=== PATIENT | male | born 1970 | race Caucasian/White ===

== ENCOUNTER 2017-10-11 07:17 | Emergency (ER) | payer MEDICAID, OTHER ==
[~2017-10-11] VITALS: Ht 177.8 cm; Wt 126.0 kg
[2017-10-11] MEDS ORDERED: SULF1TAB49 PO (08:23)
[2017-10-11 08:47] VITALS: BP 145/89
== END 2017-10-11 08:48 | disposition home or self-care (01) ==
LOC: ER 07:17
DX: L02.511 Cutaneous abscess of right hand (principal); I10 Essential (primary) hypertension; F17.200 Nicotine dependence, unspecified, uncomplicated; Z90.49 Acquired absence of other specified parts of digestive tract; Z98.890 Other specified postprocedural states; Z88.5 Allergy status to narcotic agent; Z79.899 Other long term (current) drug therapy
CPT/HCPCS: 99283

== ENCOUNTER 2017-12-07 09:40 | Emergency (ER) | payer OTHER ==
[~2017-12-07] VITALS: Ht 177.8 cm; Wt 120.0 kg
[2017-12-07] MEDS ORDERED: aspirin 81mg tab.chew PO ONE (09:55)
[2017-12-07 10:13] LABS: BASOPHILS % (AUTO) 0.3 % (0-1); EOSINOPHILS # (AUTO) 0.3 X10'3 (0-0.9); EOSINOPHILS % (AUTO) 3.2 % (0-6); HEMATOCRIT 48.3 % (42.0-52.0); HEMOGLOBIN 16.2 g/dl (14.0-17.9); LYMPHOCYTES # (AUTO) 0.6 X10'3 (1.1-4.8); LYMPHOCYTES % (AUTO) 6.2 % (21-51); MEAN CORPUSCULAR HEMOGLOBIN 28.9 PG (27.0-31.0); MEAN CORPUSCULAR HGB CONC 33.6 % (33.0-36.5); MEAN CORPUSCULAR VOLUME 86.1 FL (78-98); MEAN PLATELET VOLUME 9.4 FL (7.4-10.4); MONOCYTES # (AUTO) 0.4 X10'3 (0-0.9); MONOCYTES % (AUTO) 4.3 % (2-12); NEUTROPHILS # (AUTO) 8.5 X10'3 (1.8-7.7); PLATELET COUNT 219 X10'3 (140-440); RED CELL DISTRIBUTION WIDTH 14.6 % (11.5-14.5); WHITE BLOOD COUNT 9.9 X10'3 (4.5-11.0)
[2017-12-07] MEDS: nitroGLYCERIN 0.4mg SUBLingual tab SL PRN ×2 (10:14→10:42)
[2017-12-07 10:21] LABS: ALANINE AMINOTRANSFERASE 38 U/L (12-78); ALBUMIN 3.7 G/DL (3.4-5.0); ALBUMIN/GLOBULIN RATIO 0.9 (1.1-1.5); ALKALINE PHOSPHATASE 95 IU/L (46-116); ANION GAP 11 (8-16); ASPARTATE AMINO TRANSFERASE 24 U/L (10-37); BILIRUBIN,TOTAL 0.9 MG/DL (0.1-1.0); BLOOD UREA NITROGEN 19 MG/DL (7-18); BUN/CREATININE RATIO 19.6 (5.4-32.0); CALCIUM 8.5 MG/DL (8.5-10.1); CHLORIDE 103 MMOL/L (99-107); CREATININE 0.97 MG/DL (0.60-1.10); GLUCOSE 110 MG/DL (70-104); POTASSIUM 4.2 MMOL/L (3.5-5.1); SODIUM 140 MMOL/L (135-145); TOTAL CARBON DIOXIDE 26.1 MMOL/L (24-32); TOTAL PROTEIN 7.6 G/DL (6.4-8.2); eGFR 83 ML/MIN
[2017-12-07] MEDS ORDERED: metoprolol tartrate 50mg tablet PO ONE (10:30)
[2017-12-07] MEDS ORDERED: METO50TA7 PO (10:36)
[2017-12-07 10:39] LABS: TOTAL CELLS COUNTED 100
[2017-12-07 10:40] LABS: LARGE PLATELETS FEW; PLATELET ESTIMATE NORMAL
[2017-12-07 10:54] VITALS: BP 140/90
== END 2017-12-07 10:56 | disposition home or self-care (01) ==
LOC: ER 09:40
DX: I16.0 Hypertensive urgency (principal); R07.89 Other chest pain; M62.50 Muscle wasting and atrophy, not elsewhere classified, unspecified site; Z90.49 Acquired absence of other specified parts of digestive tract; Z98.890 Other specified postprocedural states; Z88.5 Allergy status to narcotic agent; Z79.899 Other long term (current) drug therapy
CPT/HCPCS: 36415; 71045; 80053; 83880; 84484; 85025; 99285

== ENCOUNTER 2023-01-11 08:12 | Emergency (ER) | payer MEDICAID ==
[~2023-01-11] VITALS: Ht 177.8 cm; Wt 108.1 kg
[2023-01-11 09:24] LABS: BASOPHILS # (AUTO) 0.1 X10'3 (0-0.2); EOSINOPHILS # (AUTO) 0.2 X10'3 (0-0.9); LYMPHOCYTES # (AUTO) 0.9 X10'3 (1.1-4.8); MEAN CORPUSCULAR VOLUME 88.5 FL (78-98); MONOCYTES # (AUTO) 0.6 X10'3 (0-0.9)
[2023-01-11 09:26] LABS: BASOPHILS % (AUTO) 0.9 % (0-1); EOSINOPHILS % (AUTO) 2.7 % (0-6); HEMATOCRIT 47.2 % (42.0-52.0); HEMOGLOBIN 15.8 g/dl (14.0-17.9); LYMPHOCYTES % (AUTO) 14.8 % (21-51); MEAN CORPUSCULAR HEMOGLOBIN 29.6 PG (27.0-31.0); MEAN CORPUSCULAR HGB CONC 33.4 g/dL (33.0-36.5); MEAN PLATELET VOLUME 8.8 FL (7.4-10.4); MONOCYTES % (AUTO) 9.5 % (2-12); NEUTROPHILS # (AUTO) 4.3 X10'3 (1.8-7.7); NEUTROPHILS % (AUTO) 72.1 % (42-75); PLATELET COUNT 250 X10'3 (140-440); RED BLOOD COUNT 5.33 X10'6 (4.70-6.10)
[2023-01-11 09:34] LABS: BLOOD UREA NITROGEN 8 MG/DL (7-18); BUN/CREATININE RATIO 9.1 (10.0-20.0); CHLORIDE 102 MMOL/L (99-107); CREATININE 0.88 MG/DL (0.60-1.10); GLUCOSE 107 MG/DL (70-104); POTASSIUM 3.7 MMOL/L (3.5-5.1); PRO BRAIN NATRIURETIC PEPTIDE 103 PG/ML (0-125); SODIUM 138 MMOL/L (135-145); eCRCL 103 ML/MIN; eGFR > 90 ML/MIN
[2023-01-11] MEDS ORDERED: normal saline 1000ML IV soln IVB ONE (09:35)
[2023-01-11 09:42] LABS: ALANINE AMINOTRANSFERASE 22 U/L (12-78); ALBUMIN 3.7 G/DL (3.4-5.0); ALBUMIN/GLOBULIN RATIO 0.9 (1.1-1.5); ALKALINE PHOSPHATASE 100 IU/L (46-116); ANION GAP 7 (8-16); ASPARTATE AMINO TRANSFERASE 21 U/L (10-37); BILIRUBIN,TOTAL 0.8 MG/DL (0.1-1.0); CALCIUM 8.8 MG/DL (8.5-10.1); TOTAL CARBON DIOXIDE 29.4 MMOL/L (24-32); TOTAL PROTEIN 7.9 G/DL (6.4-8.2)
[2023-01-11] MEDS ORDERED: LISI20TA28 PO (10:17)
[2023-01-11 11:21] VITALS: BP 165/96; PULSE 60; RESP 19; TEMP 98.5; O2SAT 97
== END 2023-01-11 11:42 | disposition home or self-care (01) ==
LOC: ER 08:13
DX: R07.89 Other chest pain (principal); I10 Essential (primary) hypertension; F12.90 Cannabis use, unspecified, uncomplicated; F15.90 Other stimulant use, unspecified, uncomplicated; F17.210 Nicotine dependence, cigarettes, uncomplicated; Z90.49 Acquired absence of other specified parts of digestive tract; Z88.5 Allergy status to narcotic agent
CPT/HCPCS: 36415; 71045; 80053; 83880; 84484; 85025; 93005; 96360; 99285; J7030

== ENCOUNTER 2023-04-21 12:38 | Emergency (ER) | payer MEDICAID ==
[~2023-04-21] VITALS: Ht 177.8 cm; Wt 102.3 kg
[~2023-04-21 12:38] MED LIST: LISI20TA28 PO
[2023-04-21 12:43] VITALS: BP 200/113; PULSE 88; RESP 18; TEMP 97; O2SAT 98
[2023-04-21] MEDS ORDERED: SULF1TAB48 PO (13:19)
== END 2023-04-21 13:38 | disposition home or self-care (01) ==
LOC: ER 12:39
DX: L72.3 Sebaceous cyst (principal); I10 Essential (primary) hypertension; F15.90 Other stimulant use, unspecified, uncomplicated; F12.90 Cannabis use, unspecified, uncomplicated; Z88.5 Allergy status to narcotic agent; Z79.899 Other long term (current) drug therapy
CPT/HCPCS: 99283

== ENCOUNTER 2023-11-19 10:49 | Emergency (ER) | payer MEDICAID ==
[~2023-11-19] VITALS: Ht 177.8 cm; Wt 101.0 kg
[2023-11-19 13:01] VITALS: BP 165/96; PULSE 72; RESP 16; TEMP 98; O2SAT 96
== END 2023-11-19 13:04 | disposition home or self-care (01) ==
LOC: ER 10:49
DX: M25.522 Pain in left elbow (principal); M13.822 Other specified arthritis, left elbow; I10 Essential (primary) hypertension; F12.90 Cannabis use, unspecified, uncomplicated; F15.90 Other stimulant use, unspecified, uncomplicated; Z79.899 Other long term (current) drug therapy; Z90.49 Acquired absence of other specified parts of digestive tract; Z98.890 Other specified postprocedural states
CPT/HCPCS: 73080; 99283

== ENCOUNTER 2024-07-30 06:41 | Emergency (ER) | payer MEDICAID ==
[~2024-07-30] VITALS: Ht 177.8 cm; Wt 100.6 kg
[2024-07-30 06:51] VITALS: TEMP 98.1
--- NOTE | 2024-07-30 10:44 | Physician Documentation ---
History of Present Illness ~ Chief Complaint: Hip pain Stated Complaint: LEG PAIN Time Seen by MD: 10:09 Primary Medical Doctor: NONE HPI 53-year-old male with a history of chronic right hip pain presenting with worsening hip pain for the past week. Patient states that he has had right hip pain for a long time due to having a leg length discrepancy. He states that his right leg is longer than his left. Over the past week he has noticed the hip has become extremely painful. He now has gotten so bad that he can barely bear any weight. Today it for the most part gave out on him. Pain does not radiate. Denies any other injuries. Medication Reconciliation Allergies: Coded Allergies: No Known Allergies (Unverified , 11/19/23) Scheduled Lisinopril (Lisinopril), 1 TAB PO DAILY Prednisone* (Prednisone*), 1 TAB PO Q12H Scheduled PRN Hydrocodone Bit/Acetaminophen (Hydrocodone-Apap 10-325 Tablet), 1 TAB PO QID PRN PRN for pain Past Medical History Past Medical History: No Pertinent History, Hypertension, *INFECTIOUS DZ* Past Surgical History: abdominal surgery, appendectomy, orthopedic surgeries Other Past Family History: NONCONTRIBUTORY Drug Use: marijuana, methamphetamine Lives with: Family Lives In: Home Occupation: employed Review of Systems All Other Systems at this time: Reviewed and Negative Physical Exam Vital Signs: Temperature: 98.1, Source: Oral, Heart Rate: 71, Respiratory Rate: 16, BP: 208/112, Pulse Oximetry: 97, Weight: 100.600 Oxygen Flow Rate: 0 Physical Exam I have reviewed the triage vitals. CONST: Well developed and well nourished. In no acute distress HENT: Head Atraumatic EYES: Pupils are equal, round and reactive to light. Normal conjunctiva NECK: Normal range of motion. Supple. CARDIO: Normal rate and regular rhythm. No murmurs, rubs, or gallops. S1, S2. PULM/CHEST: No respiratory distress. Lungs clear to auscultation. No wheeze ABD: Soft and nontender. Nondistended. Bowel sounds normal. No guarding. : Exam deferred MSK: No edema. No deformity. Right hip with normal appearance. There is tenderness to palpation over the lateral portion of the hip. Range of motion of the hip causes pain NEURO: Alert and oriented to person, place and time. Moving all extremities SKIN: Warm and dry. PSYCH: Normal mood and affect. Good eye contact. Progress Results/Orders Results/Orders Orders - DIANE CID MD Hip Unilateral 2 Views (07/30/24 10:39) Completed Orders - DIANE CID MD Ibuprofen Tablet (Motrin Tablet) (07/30/24 10:40) Acetaminophen 325mg Tablet (Tylenol Tabl (07/30/24 10:40) Hip Unilateral 2 Views (07/30/24 10:39) Medications Received in ER Medications (Trade) Dose Ordered Sig/Jensen Route PRN Reason Start Time Stop Time Status Last Admin Dose Admin (Motrin tablet) 800 mg ONCE ONCE PO 07/30/24 10:40 07/30/24 10:42 DC 07/30/24 11:06 800 MG (Tylenol tablet) 975 mg ONCE ONCE PO 07/30/24 10:40 07/30/24 10:42 DC 07/30/24 11:06 975 MG (Toradol inj. 30mg/ml) 30 mg ONCE ONCE IM 07/30/24 14:25 07/30/24 14:32 DC 07/30/24 14:38 30 MG (Decadron 10mg/ ml inj) 10 mg ONCE STAT IM 07/30/24 14:24 07/30/24 14:28 DC 07/30/24 14:38 10 MG ([place] 10/325mg tab) 1 tab ONCE ONCE PO 07/30/24 14:25 07/30/24 14:32 DC 07/30/24 14:39 1 TAB Vital Signs 07/30/24 07/30/24 07/30/24 07/30/24 06:51 11:00 13:30 14:38 Temp 98.1 Pulse 71 78 Resp 16 15 16 B/P (MAP) 208/112 174/106 (128) Pulse Ox 97 95 O2 Flow Rate 0 07/30/24 07/30/24 14:39 14:46 Pulse 72 Resp 16 16 B/P (MAP) 155/91 Pulse Ox 97 Medical Decision Making Additional Comment 53-year-old male presenting with right hip pain secondary to likely osteoarthritis. Hip x-ray did not show any acute fractures. Given the patient's history he is likely suffering some worsening osteoarthritis. Patient was medicated with p.o. ibuprofen and acetaminophen in the ED with good improvement of pain. Patient will be discharged home. Advised to follow up with his primary care physician for physical therapy. Patient was prescribed prednisone and [place] for pain relief by Jose CARNEY. return to the ED with any acutely worsening symptoms. Departure Disposition: HOME / SELF CARE / HOMELESS Impression: Primary Impression: Right hip pain Condition: Stable Discharge Instructions: Arthritis, Nonspecific, Contusion (Bruise) Referrals: NO PRIMARY CARE PROVIDER (PCP) Prescriptions Prednisone* (Prednisone*) 20 Mg Tablet 1 TAB PO Q12H for 5 Days, #10 TAB Prov: JOSE JACK 07/30/24 Hydrocodone Bit/Acetaminophen (Hydrocodone-Apap 10-325 Tablet) 10mg/325mg Tablet 1 TAB PO QID PRN PRN for pain for 5 Days, #20 TAB Prov: JOSE JACK 07/30/24 Education Educated: Patient Educated regarding: diagnosis, treatment Signature Scribe Signature: none used Attestation: Scribed for Jose Jack by Jose CARNEY . 07/30/24 14:29 DIANE CID MD July 30, 2024 10:44 JOSE JACK July 30, 2024 14:29
[2024-07-30] MEDS: ibuprofen tablet 400 MG TABLET PO ONE (11:06)
[2024-07-30] MEDS: acetaminophen 325mg tablet PO ONE (11:06)
--- NOTE | 2024-07-30 11:23 | RADIOLOGY REPORT ---
DI HIP UNILATERAL 2 VIEWS, INDICATION: right hip pain TECHNICAL DATA: Frontal and frog lateral views were obtained of the left hip.] COMPARISON: None FINDINGS: The left hip is normally located. The left hip joint is normally maintained with no marginal osteophy radha. No left hip fracture is identified. The left sacroiliac joint appears normal. IMPRESSION: No fracture radiographs of the left hip.
[2024-07-30] MEDS ORDERED: PRED20TA PO (14:28)
[2024-07-30] MEDS ORDERED: HYDR-3973 PO (14:28)
[2024-07-30] MEDS: ketorolac trometh 30MG/ML vial 30 MG/ML VIAL IM ONE (14:38)
[2024-07-30] MEDS: dexamethasone sod phosphate 10mg/ml inj IM STA (14:38)
[2024-07-30] MEDS: HYDROcodone/acetaminophen 10/325mg tab PO ONE (14:39)
[2024-07-30 14:46] VITALS: BP 155/91; PULSE 72; RESP 16; O2SAT 97
== END 2024-07-30 14:48 | disposition home or self-care (01) ==
LOC: ER 06:42
DX: M25.551 Pain in right hip (principal); F12.90 Cannabis use, unspecified, uncomplicated; F15.90 Other stimulant use, unspecified, uncomplicated; Z90.49 Acquired absence of other specified parts of digestive tract
CPT/HCPCS: 73502; 96372; 99284; J1100; J1885

== ENCOUNTER 2024-10-14 16:22 | Emergency (ER) | payer MEDICAID ==
[~2024-10-14] VITALS: Ht 177.8 cm; Wt 111.8 kg
[2024-10-14 16:53] VITALS: BP 161/103; PULSE 80; O2SAT 97
--- NOTE | 2024-10-14 18:01 | RADIOLOGY REPORT ---
DI KNEE, COMP 4 VW MIN, INDICATION: R/P FX TECHNICAL DATA: Frontal , oblique , patella and lateral views were obtained of the right knee. COMPARISON: None FINDINGS: No fracture is identified. Medial, lateral and patellofemoral compartment joint spaces are degenerati ve and narrow. Alignment is anatomic. Soft tissues are within normal limits. No joint effusion is de monstrated. IMPRESSION: No acute fracture or dislocation of the right knee.
[2024-10-14 18:32] VITALS: RESP 16
[2024-10-14] MEDS: ketorolac trometh 30MG/ML vial 30 MG/ML VIAL IM ONE (18:32)
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
[2024-10-14] MEDS ORDERED: CYCL-394 PO (18:53)
[2024-10-14 19:00] VITALS: TEMP 98.9
== END 2024-10-14 19:02 | disposition home or self-care (01) ==
LOC: ER 16:23
DX: S09.90XA Unspecified injury of head, initial encounter (principal); S19.9XXA Unspecified injury of neck, initial encounter; M25.562 Pain in left knee; M54.50 Low back pain, unspecified; F12.90 Cannabis use, unspecified, uncomplicated; F15.90 Other stimulant use, unspecified, uncomplicated; Z90.49 Acquired absence of other specified parts of digestive tract; V89.2XXA Person injured in unspecified motor-vehicle accident, traffic, initial encounter; Y93.89 Activity, other specified; Y92.89 Other specified places as the place of occurrence of the external cause; Y99.8 Other external cause status
CPT/HCPCS: 73564; 96372; 99283; J1885